=== PATIENT | male | born 1950 | race African-American/Black ===

== ENCOUNTER → 2019-04-17 13:01 | Outpatient (CLI) | payer BC, SELFPAY ==
--- NOTE | 2019-04-17 13:05 | CA_ITS ---
APPROVED REPORT EXAM: Comprehensive 2D, Doppler, and color-flow Echocardiogram Drawstring Knotter: Sandi Cantrell RVT Ht: 5 ft 11 in Wt: 287lbs BSA: 2.46 BP: 130/80 mmHg Indications: A FLUTTER, AFIB,EDEMA,DM,HTN,SOA,TEDDY,HX SVT 2D Dimensions LVOT 2.13 cm (M/F) 1.5-2.5 M-Mode Dimensions RVDd 2.99 cm (0.9-2.6) LA Diam 4.70 cm (1.9-4.0) LVDd 4.52 cm (3.5-5.7) Ao Diam 3.00 cm (2.0-3.7) LVDs 2.83 cm (3.5-5.7) AV Cusp 2.30 cm (1.5-2.6) IVSd 1.76 cm (0.6-1.1) PWd 1.13 cm (0.6-1.1) EF (Teich) 67.60% FS 37.40% EDV (Teich) 93.40 mL ESV (Teich) 30.30 mL Left Ventricle Left atrium is moderately enlarged, left ventricle is normal size, mild concentric left ventricular hypertrophy, visually estimated ejection fraction 55% with no regional wall motion abnormality, diastolic parameters are inconclusive. Right Ventricle Right atrium and right ventricular moderately enlarged with normal contractility. Aortic Valve Aortic valve is thickened and calcified leaflet continue to display good mobility, there is no aortic stenosis or aortic insufficiency. Mitral Valve Mitral valve leaflets are minimally thickened, there is no mitral stenosis, there is mild mitral regurgitation. Tricuspid Valve Tricuspid valve is grossly normal, there is mild tricuspid regurgitation, calculated right ventricular systolic pressure is 59 mmHg consistent moderately elevated right ventricular systolic pressure, inferior vena cava is not well-visualized. Pulmonic Valve Pulmonic valve is poorly visualized. Great Vessels Aortic root is normal size. Pericardium No significant pericardial effusion noted. Conclusion 1. Biatrial enlargement, normal left ventricular size, mild concentric left ventricular hypertrophy, visually estimated ejection fraction 55% with no regional wall motion abnormality, diastolic parameters are inconclusive. 2. Mildly enlarged right ventricle with normal contractility. 3. Mild mitral and tricuspid regurgitation, calculated right ventricular systolic pressure is 59 mmHg which is moderately elevated. 4. No significant pericardial effusion noted. Electronically signed by : Robin Hannon, 04/17/2019 15:02:40
== END ==
PROVIDERS: PCP Family Medicine; Visit Provider Urology
DX: R06.02 Shortness of breath (principal)
CPT/HCPCS: 93306

== ENCOUNTER → 2020-11-01 14:33 | Outpatient (CLI) | payer BC, SELFPAY ==
[2020-11-01 15:28] LABS: Basophils % 0.2 % (0.1-2.0); Eosinophils # 0.2 K/mm3 (0.0-0.4); Eosinophils % 2.6 % (0.1-12.0); Hematocrit 43.6 % (42.0-52.0); Hemoglobin 13.6 g/dL (14.1-18.0); Lymphocytes % 25.5 % (10-50); Mean Corpuscular HGB Conc 31.2 g/dL (31.8-35.4); Mean Corpuscular Hemoglobin 23.2 pg (27.0-31.2); Mean Corpuscular Volume 74.3 fl (80-94); Mean Platelet Volume 8.2 fl (7.4-10.4); Monocytes # 0.5 K/mm3 (0.1-1.0); Neutrophils # 5.1 K/mm3 (1.8-7.8); Neutrophils % 65.7 % (37.0-80.0); Platelet Count 229 K/mm3 (142-424); Red Blood Count 5.87 M/mm3 (4.60-6.20); Red Cell Distribution Width 17.4 % (11.5-17.5); White Blood Count 7.7 K/mm3 (4.8-10.8)
[2020-11-01 15:59] LABS: Chloride 104 mmol/L (98-107); Potassium 4.9 mmoL/L (3.5-5.1); Sodium 136 mmol/L (136-145)
[2020-11-01 16:02] LABS: Alanine Aminotransferase 20 U/L (12-78); Albumin Level 4.2 g/dl (3.5-5.0); Alkaline Phosphatase 64 U/L (38-126); Anion Gap 14.9 mEq/L (5-15); Aspartate Amino Transferase 38 U/L (17-59); Bilirubin,Direct 0.4 mg/dl (0.0-0.4); Bilirubin,Indirect 0.3 mg/dL (0.0-0.9); Bilirubin,Total 0.7 mg/dl (0.2-1.3); Bilirubin,Unconjugated 0.3 mg/dL (0.0-1.1); Blood Urea Nitrogen 18 mg/dl (9-20); Calcium 9.7 mg/dl (8.4-10.2); Carbon Dioxide 22 mmol/L (22.0-30.0); Cholesterol 85 mg/dl (140-200); Estimated Glomerular Filt Rate 74 ml/min (>60); GFR (African American) 90 ML/MIN (>60); Glucose 111 mg/dl (74-100); Total Protein,Serum 7.4 g/dl (6.3-8.2); Triglycerides 100 mg/dl (30-150); VLDL Cholesterol 20 mg/dL (0-40)
[2020-11-01 16:03] LABS: HDL Cholesterol 28 mg/dl (40-60)
[2020-11-01 16:14] LABS: Direct LDL Cholesterol 35.98 mg/dL (100-129)
== END ==
PROVIDERS: Visit Provider Urology
DX: R06.00 Dyspnea, unspecified (principal); R94.31 Abnormal electrocardiogram [ECG] [EKG]; I48.92 Unspecified atrial flutter; I10 Essential (primary) hypertension; E11.9 Type 2 diabetes mellitus without complications; E78.2 Mixed hyperlipidemia; G47.33 Obstructive sleep apnea (adult) (pediatric); Z79.84 Long term (current) use of oral hypoglycemic drugs; I48.20 Chronic atrial fibrillation, unspecified
CPT/HCPCS: 36415; 80048; 80061; 80076; 85025; 93306

== ENCOUNTER → 2022-07-18 06:51 | Outpatient (CLI) | payer BC, MEDICARE, SELFPAY ==
--- NOTE | 2022-07-18 06:52 | CA_ITS ---
APPROVED REPORT Exam: Pharmacologic Technologist: Kesha Torres, Ht: 5 ft 11 in Wt: 293 lbs BSA: 2.48 m2 HR: 66 bpm BP: 154/67 mmHg Medical History Medications: Omeprazole,,,,, Pravastatin,,,,, Losartan,,,,, Glipizide,,,,, Janumet,,,,, Toprol XL,,,,, Apixaban,,,,, EMpagliflozin,,,,, Furosemide,,,,, DilTiazem HCI,,,,, Ferosol,,,,, Digox,,,,, Stress Test Details Test: LEXISCAN Reason for pharmacologic stress test: physical limitation. HR Resting HR: 56 bpm Max Heart Rate (APMHR): 150.018882 bpm Max HR Achieved: 77 bpm Target HR (85% APMHR): 127.813077 bpm % of APMHR: 51.33 Recovery HR: 76 bpm BP Resting BP: 154.0/67.0 mmHg Max BP: 154.0/67.0 mmHg Recovery BP: 141.0/61.0 mmHg ECG Resting ECG: A. flutter with CVR, RBBB Clinical Reason for Termination: Completed Protocol Exercise duration: 04:01 min Highest Stage Achieved: Stress ECG Conclusion Symptoms: none Arrhythmias/Ectopy: none ST-T Changes: <1.5mm ST Segment changes Conclusion: Non-Diagnostic Test Summary REST 05:04 . . 56 . 154/ 67 . . Stage 1 01:00 . . 60 . . . . Stage 2 01:00 . . 76 . . . . Stage 3 01:00 . . 71 . 134/ 60 . . Stage 4 01:00 . . 76 . . . . Stage 4 01:01 . . 76 . . . Stop exercise at 04:01 RECOVERY 01:00 . . 76 . 138/ 65 . . RECOVERY 02:00 . . 76 . 138/ 65 . . RECOVERY 03:00 . . 76 . 141/ 61 . . RECOVERY 03:05 . . 76 . 141/ 61 . . Electronically signed by : Robin Hannon MD 07/18/2022 18:27:09
--- NOTE | 2022-07-18 06:52 | NM_ITS ---
APPROVED REPORT Exam: Nuclear Stress Test Indication: Chest pain, SOB, HTN, DM, Family history Patient Location: Outpatient Stress Tech: Kesha Randle [place] Tech:Brenda Babcock, ARRT, RT (R)(N) Ht: 5 ft 11 in Wt: 280 lbs HR: 56 bpm BP: 154/67 mmHg BSA: 2.43 m2 TID: 1.11 BMI: 39.0 History: Chest pain, SOB, HTN, DM, Family history Procedure: Patient received 0.4 mg of intravenous Lexiscan, resting heart rate 56 bpm, resting blood pressure 154/67 mmHg, with Lexiscan maximum heart rate achieved was 77 bpm which is Less than 85 % of the maximum predicted heart rate and blood pressure was 154/67 mmHg. With Lexiscan, patient denied any complaint of chest pain. Electrocardiogram Electrocardiogram shows atrial flutter, with Lexiscan there is less than 1.[address] segment depression noted from the baseline EKG. The EKG portion of the Lexiscan is nondiagnostic. Cardiac Stress and Resting SPECT Images: Cardiac Stress and Resting SPECT images were obtained using technetium 99m Myoview 31.3 mCi stress and 10.22 mCi at rest. Gated SPECT analysis of segmental wall motion and calculation of the ejection fraction also done. Prone images were also obtained. Cardiac stress and rest SPECT may show uniform myocardial activity without segmental perfusion abnormality, computer derived ejection fraction of 49% with no regional wall motion abnormality, right ventricle is normal size and contractility. Conclusion: 1. The EKG portion of the Lexiscan is nondiagnostic. 2. No scintigraphic evidence of reversible ischemia seen, computer derived ejection fraction is 49% with no regional wall motion abnormality, right ventricle is normal size and contractility. 3. Normal Lexiscan Myoview study. Electronically signed by : Robin Hannon MD 07/18/2022 18:43:58
--- NOTE | 2022-07-18 06:52 | CA_ITS ---
APPROVED REPORT EXAM: Comprehensive 2D, Doppler, and color-flow Echocardiogram Movie Stunt Performer: CHAYO Cross, RVS Ht: 5 ft 11 in Wt: 293lbs BSA: 2.48 BP: 92/65 mmHg Rhythm: Atrial Fibrillation Indications: Afib, RBBB, TEDDY, HTN, CP, SOB, Obesity Echo Enhancing Agent Comments: Technically difficult exam due to extreme body habitus. 2D Dimensions IVSd 1.10 cm LVEF (Visual) 81.10 % PWd 0.73 cm LA Volume 82.50 mL LVDd 4.25 cm LA Volume Index 32.50 mL/m2 (M/F) 16-34 LVDs 2.15 cm Aortic Root 3.00 cm Left Atrium 4.51 cm LVOT 2.17 cm (M/F) 1.5-2.5 M-Mode Dimensions RVDd 4.07 cm (0.9-2.6) LA Diam 4.58 cm (1.9-4.0) LVDd 4.16 cm (3.5-5.7) Ao Diam 3.32 cm (2.0-3.7) LVDs 2.46 cm (3.5-5.7) IVSd 0.89 cm (0.6-1.1) PWd 0.89 cm (0.6-1.1) EF (Teich) 72.10% EPSs 0.47 cm FS 40.90% EDV (Teich) 76.80 mL TAPSE 1.23 (<1.7) ESV (Teich) 21.40 mL LV Diastology E Decel Time 117.00 (160-240 msec) E/A Ratio 5.43 MED E' 8.60 (< 7 cm/sec) MED A' 7.30 cm/s E'/MED E' Ratio 9.79 (>14) LAT E' 7.10 (<10 cm/sec) LAT A' 8.10 cm/s E/LAT E' Ratio 11.86 (>14) Aortic Valve LVOT Max 82.00 (70-110 cm/s) LVOT VTI 15.41 cm AoV Peak Christiano. 92.00 (50-130 cm/s) AO Peak GR. 3.40 mmHg AO Mean GR. 1.70 (<5 mmHg) AO VTI 17.75 (18-25 cm) LUCIE (VTI) 3.21 (2.5-4.5 cm2) Mitral Valve MV A Velocity 16.00 (40-130 cm/s) E/A Ratio 5.43 MV Decel. Time 117.00 (160-240 ms) MV PHT 33.00 ms Pulmonary Valve PV Peak Velocity 96.00 (50-150 cm/s) Tricuspid Valve TR P. Velocity 349.00 cm/s RAP Estimate 15.00 mmHg RVSP 63.70 mmHg Left Ventricle Technically difficult study because of the patient factors and poor acoustic windows. Left atrium is mildly enlarged, left ventricle is normal size mild concentric left ventricular hypertrophy, estimated ejection fraction 55% with no regional wall motion abnormality, diastolic parameters are inconclusive. Right Ventricle Right atrium and right ventricular moderately enlarged, contractility of the right ventricular appears to be preserved. Aortic Valve Aortic valve is thickened and calcified without Doppler evidence of aortic stenosis or significant aortic insufficiency. Mitral Valve Mitral valve is grossly normal, there is mild mitral regurgitation. Tricuspid Valve Tricuspid valve grossly normal, there is moderate tricuspid regurgitation, calculated right ventricular systolic pressure is 63 mmHg. Pulmonic Valve Pulmonic valve is poorly visualized. Great Vessels Aortic root is normal size. Inferior vena cava is mildly dilated without significant inspiratory collapse. Pericardium No significant pericardial effusion noted. Conclusion 1. Technically difficult study because of the patient factors and poor acoustic windows. 2. Biatrial enlargement, normal left ventricular size, mild concentric left ventricular hypertrophy, estimated ejection fraction 55% with no regional wall motion abnormality, diastolic parameters are inconclusive. 3. Mild mitral, moderate tricuspid regurgitation, calculated right ventricular systolic pressure is 63 mmHg. 4. Moderately enlarged right ventricle with preserved contractility. 5. No significant pericardial effusion noted. 6. Inferior vena cava is dilated without significant inspiratory collapse. Electronically signed by : Robin Hannon MD
--- NOTE | 2022-07-18 08:35 | HMH.ITSHM ---
Current Home Medications as stated by this patient Elijah Smith or medical claims representative. []SITAGLIPTIN PRAVASTATIN OMEPRAZOLE METOPROLOL LOSARTAN GLIPIZIDE FUROSEMIDE IRON EMPAGLIFLOZIN DILTIAZEM DIGOXIN APIXABAN
== END ==
PROVIDERS: PCP Family Medicine; Visit Provider Nurse Practitioner Family
DX: R06.00 Dyspnea, unspecified (principal); R07.9 Chest pain, unspecified; R94.31 Abnormal electrocardiogram [ECG] [EKG]
CPT/HCPCS: 78452; 93017; 93306; A9502; J2785